=== PATIENT | female | born 1970 | race Caucasian/White ===

== ENCOUNTER → 2017-02-05 | Outpatient (CLI) | payer BC ==
[~2017-02-05] MED LIST: ACET-1256 PO; CARV3.12 PO; CEPH500C PO; CLIN300C2 PO; CYCL10TA6 PO; DICL75TA2 PO; DOXY100C76 PO; FENO145T26 PO; GABA-113 PO; GLCSR500 PO; HYDR-5688 PO; IBUP-1450 PO; INSDGI SC; INSDGIPEN SC; LIRA18IN INJ; LSN25 PO; NVLG SQ; OMEG12006 PO; PRED50TA PO; SULF800T23 PO
--- NOTE | 2017-02-05 11:15 | DIAGNOSTIC IMAGING REPORT ---
RIGHT WRIST MIN 3 VIEWS ROUTINE CLINICAL HISTORY: M25.531 Right trauma. Pain. COMPARISON: None. DISCUSSION: The bones and joint spaces appear intact. There is no evidence of fracture, dislocation or bony disease. There is no evidence for soft tissue swelling. IMPRESSION: Negative study. Electronically signed by: Norberto Palm M.D. 02/05/2017 11:14 AM Dictated Date/Time: 02/05/2017 11:12 AM
--- NOTE | 2017-02-05 11:15 | DIAGNOSTIC IMAGING REPORT ---
RIGHT HAND MIN 3 VIEWS ROUTINE CLINICAL HISTORY: Right hand pain. Trauma. COMPARISON: None. DISCUSSION: No acute fractures or dislocations are visualized. There are minimal degenerative changes present. IMPRESSION: No acute fractures or dislocations identified. Electronically signed by: Sridhar Mcintyre M.D. 02/05/2017 11:14 AM Dictated Date/Time: 02/05/2017 11:13 AM
== END | disposition home or self-care (01) ==
LOC: C.RAD 10:47
PROVIDERS: ATTEND Physician Assistant Surgical
DX: S69.91XA Unspecified injury of right wrist, hand and finger(s), initial encounter (principal); X58.XXXA Exposure to other specified factors, initial encounter; M25.531 Pain in right wrist

== ENCOUNTER 2017-03-15 15:25 | Emergency (ER) | payer BC ==
[~2017-03-15] VITALS: Ht 165.1 cm; Wt 79.0 kg
[~2017-03-15 15:25] MED LIST changes: -ACET-1256 PO; -CEPH500C PO; -CLIN300C2 PO; -CYCL10TA6 PO; -DICL75TA2 PO; -DOXY100C76 PO; -GABA-113 PO; -HYDR-5688 PO; -IBUP-1450 PO; -INSDGIPEN SC; -LIRA18IN INJ; -NVLG SQ; -OMEG12006 PO; -PRED50TA PO; -SULF800T23 PO
[2017-03-15 15:33] VITALS: TEMP 36.8; Ht 165.1 cm; Wt 79.0 kg
[2017-03-15] MEDS ORDERED: IBUPROFEN 600 MG TAB PO STA (15:44)
[2017-03-15] MEDS ORDERED: CEPHALEXIN MONOHYDRATE 250 MG CAP PO STA (15:44)
[2017-03-15] MEDS ORDERED: HYDROCODONE/ACETAMOPHEN 5/325MG TAB PO STA (15:44)
[2017-03-15] MEDS ORDERED: SULFAMETHOXAZOLE/TRIMETHOPRIM DS 800/160MG TAB PO STA (15:44)
[2017-03-15] MEDS ORDERED: HYDR-5688 PO (15:50)
[2017-03-15] MEDS ORDERED: SULF800T23 PO (15:50)
[2017-03-15] MEDS ORDERED: CEPH500C PO (15:50)
[2017-03-15] MEDS ORDERED: INSDGIPEN SC (15:57)
[2017-03-15] MEDS ORDERED: OMEG12006 PO (15:57)
[2017-03-15] MEDS ORDERED: LIRA18IN INJ (15:57)
[2017-03-15 16:23] VITALS: BP 129/68; PULSE 80; O2SAT 97
--- NOTE | 2017-03-15 16:27 | EMERGENCY ROOM VISIT NOTE ---
ED Visit Note First contact with patient: 15:38 CHIEF COMPLAINT: Infection of the left breast HISTORY OF PRESENT ILLNESS: This 46 y/o female patient presents to the emergency department complaining of left breast pain. The area has become red, warm, and very painful. The patient denies fever, chills, nausea, or loss of appetite. REVIEW OF SYSTEMS: A review of systems was performed with positives and pertinent negatives listed in the history of present illness. All other systems were reviewed and are negative. ALLERGIES: Toradol, Oxy, Proxyphene MEDICATIONS: see nursing notes PMH:Diabetes, Heart Disease, Partial hysterectomy, tonsils, abd plasty SOCIAL HISTORY: employed lives at home, drinks alcohol doesnt smoke PHYSICAL EXAM: Vital Signs: Reviewed Nurse's notes, Temperature 37C, vital signs stable. GENERAL: 46 y/o female, in no acute distress, is non toxic in appearance, well-developed, well-nourished. SKIN: The left breast is red, warm, very tender, and swollen. There is no lymphangitic streaking. There is no discharge. There is no fluctuance. There is no induration. HEART: Regular rate and rhythm without murmur, gallop, or rub. LUNGS: Clear to auscultation bilaterally without wheezes, rales, or rhonchi. NEURO: Alert and oriented to person, place, and time. Normal sensation to light and sharp touch. Capillary reflex less than 2 seconds. Peripheral pulses 2 + bilaterally. No abscess present by bedside ultrasound EMERGENCY DEPARTMENT COURSE: I examined the patient. Bedside U/S obtained, Pt started on Keflex and Bactrim, Ibuprofen and Barclay. Case management contacted to [facility] with [facility] DIAGNOSIS: Cellulitis of the left Breast DISCHARGE INSTRUCTIONS: Follow up with [facility] Problem List Medical Problems: (1) Diabetes Status: Chronic (2) Heart disease Status: Chronic (3) Pneumonia Status: Resolved Surgical Problems: (1) Hx of cholecystectomy Status: Resolved Current/Historical Medications Scheduled Carvedilol (Coreg), 3.125 MG PO BID Cephalexin Monohydrate (Keflex), 1 CAP PO QID Insulin Glargine (Lantus Solostar), 40 UNITS SC QPM Liraglutide (Victoza), 3 ML INJ NOON Metformin HCl (Metformin HCl ER), 1,000 MG PO BID Distant-3 Fatty Acids (Distant 3), 1 CAP PO BID Sulfa/Trimethoprim (Bactrim Ds 800MG/160MG), 1 TAB PO BID Scheduled PRN Hydrocodone/Acetaminophen 5MG/325MG (Barclay 5MG/325MG), 2 TABLETS PO Q6H PRN for Pain Allergies Coded Allergies: Propoxyphene (Unverified Allergy, Mild, HIVES, 03/15/17) Ketorolac Tromethamine (Unverified Allergy, Unknown, UNKNOWN, 03/15/17) Oxycodone (Unverified Allergy, Unknown, HIVES, 03/15/17) Vital Signs Date Time Temp Pulse Resp B/P (MAP) Pulse Ox O2 Delivery O2 Flow Rate FiO2 03/15/17 15:33 36.8 90 20 156/87 97 Room Air Departure Information Impression Primary Impression: Cellulitis of breast Additional Impression: Hypertension Dispostion Home / Self-Care Condition GOOD Prescriptions Hydrocodone/Acetaminophen 5MG/325MG (Barclay 5MG/325MG) Tab 2 TABLETS PO Q6H Y for Pain, #14 TAB Prov: Julian Carranza MD 03/15/17 Cephalexin Monohydrate (Keflex) 500 Mg Cap 1 CAP PO QID for 10 Days, #40 CAP Prov: Julian Carranza MD 03/15/17 Sulfa/Trimethoprim (Bactrim Ds 800MG/160MG) Tab 1 TAB PO BID for 10 Days, #20 TAB Prov: Julian Carranza MD 03/15/17 Forms WORK / SCHOOL INSTRUCTIONS, HOME CARE DOCUMENTATION FORM, IMPORTANT VISIT INFORMATION Patient Instructions Hypertension Dc, Cellulitis - [facility], [facility] Additional Instructions Need follow up with Breast Center You were found to have an elevated blood pressure today (>120 sytolic or >90 diastolic). Per medicare guidelines, you need to follow up with this blood pressure screening with your Primary Care Physician (PCP). For a new PCP call [phone]. You received narcotic or benzodiazepene medication while in the emergency room today. Do not drive, operate heavy machinery, or drink alcohol under the influence of this medication. Take 600 mg Ibuprofen every 6 hours Take Barclay for breakthrough pain You have been examined and treated today on an emergency basis only. This is not a substitute for, or an effort to provide, complete comprehensive medical care. It is impossible to recognize and treat all injuries or illnesses in a single emergency department visit. It is therefore important that you follow up closely with Dr Curran. Call as soon as possible for an appointment. Thank you for your time and consideration. I look forward to speaking with you again soon. Please don't hesitate to call us if you have any questions. Problem Qualifiers
== END 2017-03-15 16:47 | disposition home or self-care (01) ==
LOC: C.EDB 15:26
DX: N61.0 Mastitis without abscess (principal); I10 Essential (primary) hypertension; E11.9 Type 2 diabetes mellitus without complications; I51.9 Heart disease, unspecified; Z79.4 Long term (current) use of insulin; Z79.899 Other long term (current) drug therapy; Z87.01 Personal history of pneumonia (recurrent)

== ENCOUNTER → 2017-05-19 | Outpatient (CLI) | payer BC ==
[~2017-05-19] MED LIST changes: -FENO145T26 PO; +HYDR-5688 PO; -INSDGI SC; +INSDGIPEN SC; +LIRA18IN INJ; -LSN25 PO; +OMEG12006 PO
[2017-05-19 16:10] LABS: ALKALINE PHOSPHATASE 75 U/L (45-117); ALT/SGPT 37 U/L (12-78); AST/SGOT 28 U/L (15-37)
== END | disposition home or self-care (01) ==
LOC: C.LAB 14:57
PROVIDERS: ATTEND Surgery
DX: T88.7XXA Unspecified adverse effect of drug or medicament, initial encounter (principal); X58.XXXA Exposure to other specified factors, initial encounter

== ENCOUNTER 2017-06-08 13:39 | Emergency (ER) | payer BC ==
[~2017-06-08] VITALS: Ht 165.1 cm; Wt 82.1 kg
[2017-06-08 13:41] VITALS: TEMP 36.5; Ht 165.1 cm; Wt 82.1 kg
[2017-06-08] MEDS ORDERED: NVLG SQ ×2 (14:14)
--- NOTE | 2017-06-08 14:38 | DIAGNOSTIC IMAGING REPORT ---
R SHOULDER MIN 2 VIEWS ROUTINE CLINICAL HISTORY: Right arm/shoulder pain COMPARISON: None. DISCUSSION: No fractures or dislocations are visualized. Degenerative changes are present within the AC joint. There is a tiny peritendinous calcification adjacent to the greater tuberosity. This could indicate calcific tendinitis. IMPRESSION: 1. No fractures or dislocations 2. Degenerative changes within the AC joint 3. Tiny calcification adjacent to the greater tuberosity. This could indicate calcific tendinitis. Electronically signed by: Sridhar Mcintyre M.D. 06/08/2017 2:36 PM Dictated Date/Time: 06/08/2017 2:32 PM
--- NOTE | 2017-06-08 14:38 | DIAGNOSTIC IMAGING REPORT ---
R HUMERUS MIN 2 VIEWS ROUTINE CLINICAL HISTORY: Right arm/shoulder pain. COMPARISON: None FINDINGS: No fracture or osseous lesion is identified within the right humerus. A 3 mm calcific density along the superolateral aspect of the right humeral head suggests calcific tendinitis of the right rotator cuff. IMPRESSION: 1. No fracture or lesion identified within the right humerus. 2. Findings suggestive of mild calcific tendinitis of the right rotator cuff. Electronically signed by: Robert Perry M.D. 06/08/2017 2:36 PM Dictated Date/Time: 06/08/2017 2:33 PM
[2017-06-08] MEDS ORDERED: PRED50TA PO (15:22)
[2017-06-08] MEDS ORDERED: DICL75TA2 PO (15:22)
[2017-06-08] MEDS ORDERED: CYCL10TA6 PO (15:22)
[2017-06-08 15:32] VITALS: BP 121/85; PULSE 97; O2SAT 96
--- NOTE | 2017-06-09 07:53 | EMERGENCY ROOM VISIT NOTE ---
History First contact with patient: 13:44 Chief Complaint: SHOULDER PAIN Stated Complaint: RIGHT SHOULER PAIN History of Present Illness The patient is a 47 year old female who presents to the Emergency Room with complaints of right shoulder pain that is slowly worsening over the past several days. The patient does not have distinct injury or trauma to explain her symptoms. She has difficulty with certain range of motion. No numbness or paresthesias. She does not have significant neck or chest pain. She has had some improvement with ibuprofen but rates her current discomfort a 6/10. Review of Systems More than 10 systems were reviewed and otherwise negative with the exception of history of present illness. Past Medical/Surgical History Medical Problems: (1) Diabetes (2) Heart disease (3) Pneumonia Surgical Problems: (1) Hx of cholecystectomy Family History Diabetes mellitus FHx: cancer FHx: heart disease Hypertension Kidney disease Social History Smoking Status: Former Smoker Alcohol Use: occasionally Marital Status: Housing Status: lives with significant other Occupation Status: employed Current/Historical Medications Scheduled Carvedilol (Coreg), 3.125 MG PO BID Cyclobenzaprine Hcl (Flexeril), 10 MG PO TID Diclofenac Sodium (Voltaren), 75 MG PO BID Insulin Aspart (Novolog), 6 UNITS SQ QDB Insulin Aspart (Novolog), 8 UNITS SQ QDD Insulin Glargine (Lantus Solostar), 40 UNITS SC QPM Metformin HCl (Metformin HCl ER), 1,000 MG PO BID [place]-3 Fatty Acids ([place] 3), 1 CAP PO BID Prednisone (Prednisone), 50 MG PO DAILY Allergies Coded Allergies: Propoxyphene (Unverified Allergy, Mild, HIVES, 06/08/17) Ketorolac Tromethamine (Unverified Allergy, Unknown, UNKNOWN, 06/08/17) Oxycodone (Unverified Allergy, Unknown, HIVES, 06/08/17) Physical Exam Vital Signs Date Time Temp Pulse Resp B/P (MAP) Pulse Ox O2 Delivery O2 Flow Rate FiO2 06/08/17 15:32 97 18 121/85 96 06/08/17 13:41 36.5 82 16 129/80 97 Room Air Physical Exam VITALS: Vitals are noted on the nurse's note and reviewed by myself. Vital signs stable. GENERAL: Well-developed, well-nourished, white female, who is in no acute distress and resting comfortably. Patient is cooperative with the examination. NECK: Supple without nuchal rigidity. No lymphadenopathy. No thyromegaly. Cervical spine is nontender. HEART: Regular rate and rhythm without murmurs gallops or rubs. LUNGS: Clear to auscultation bilaterally without wheezes, rales or rhonchi. No retractions or accessory muscle use. MUSCULOSKELETAL: No muscle atrophy, erythema, or edema noted. Tenderness appreciated diffusely throughout the right shoulder. The patient has difficulty with abduction and external rotation. She is able to raise her hand above her head. No tenderness of the elbow or wrist. No paresthesias appreciated. Strength is 5/5 throughout the right upper extremity. NEURO: Patient was alert and oriented to person place and time. CN II through XII grossly intact. Deep tendon reflexes 2+ throughout. Medical Decision & Procedures ER Provider Diagnostic Interpretation: R HUMERUS MIN 2 VIEWS ROUTINE CLINICAL HISTORY: Right arm/shoulder pain. COMPARISON: None FINDINGS: No fracture or osseous lesion is identified within the right humerus. A 3 mm calcific density along the superolateral aspect of the right humeral head suggests calcific tendinitis of the right rotator cuff. IMPRESSION: 1. No fracture or lesion identified within the right humerus. 2. Findings suggestive of mild calcific tendinitis of the right rotator cuff. R SHOULDER MIN 2 VIEWS ROUTINE CLINICAL HISTORY: Right arm/shoulder pain COMPARISON: None. DISCUSSION: No fractures or dislocations are visualized. Degenerative changes are present within the AC joint. There is a tiny peritendinous calcification adjacent to the greater tuberosity. This could indicate calcific tendinitis. IMPRESSION: 1. No fractures or dislocations 2. Degenerative changes within the AC joint 3. Tiny calcification adjacent to the greater tuberosity. This could indicate calcific tendinitis. ED Course Physical exam and history were performed. Nursing notes, EMR, and Medication List were personally reviewed. Patient appears to have right shoulder pain of atraumatic origin for the past several days. She does identify the discomfort between the mid humerus and the proximal humerus. She does have some tenderness on examination and x-ray was performed. X-ray does not show evidence of fracture or dislocation but does suggest a possible calcific tendinitis. Clinically this does correlate with her symptoms. The patient will be given a short course of diclofenac, Flexeril , and prednisone for her symptoms. She needs to follow with orthopedics for further care and management, and was given information to assist with this. She was given additional discharge instructions as below in the ER with a new, worsening, or concerning symptoms. The chart was completed utilizing [employer] Voice Recognition Software. Grammatical errors, random word insertions, pronoun errors, and incomplete sentences are an occasional consequence of this system due to software limitations, ambient noise, and hardware issues. Any formal questions or concerns about the content, text, or information contained within the body of this dictation should be directly addressed to the provider for clarification. . Medical Decision Differential diagnosis includes, but is not limited to: Sprain, strain, fracture , dislocation, subluxation, contusion, arthritis, bursitis, rotator cuff injury , and others Impression Primary Impression: Calcific tendonitis of right upper arm Departure Information Dispostion Home / Self-Care Condition GOOD Prescriptions Diclofenac Sodium (VOLTAREN) 75 Mg Tab 75 MG PO BID for 10 Days, #20 TAB Prov: Jonah Field PA-C 06/08/17 Cyclobenzaprine Hcl (FLEXERIL) 10 Mg Tab 10 MG PO TID for 7 Days, #21 TAB Prov: Jonah Field PA-C 06/08/17 Prednisone (Prednisone) 50 Mg Tab 50 MG PO DAILY for 4 Days, #4 TAB Prov: Jonah Field PA-C 06/08/17 Forms HOME CARE DOCUMENTATION FORM, IMPORTANT VISIT INFORMATION Patient Instructions My [facility] Additional Instructions You were seen and evaluated today on an emergency basis only. This is not a substitute for, or an effort to provide, complete comprehensive medical care. It is not possible to recognize and treat all injuries or illnesses in a single emergency department visit. For this reason it is recommended that you followup with [facility] , Dr Acosta office, for ongoing care and evaluation. We recommended you call in the morning to arrange an appointment in the next 1-2 weeks for recheck. Take diclofenac 75 mg twice daily for the next for 5 days. Take this medication with food. Flexeril 1 tablet up to 3 times a day as needed for muscle spasms. No driving, working, or alcohol use with Flexeril. Take prednisone 50 mg daily for the next 4 days. Prednisone will likely increase your blood sugar. You may need to increase her insulin for the next few days to adjust for this. You are welcome to return to the emergency department anytime with new, worsening, or concerning symptoms.
== END 2017-06-08 15:32 | disposition home or self-care (01) ==
LOC: C.EDB 13:41 → C.EDD 15:32
DX: M75.31 Calcific tendinitis of right shoulder (principal); E11.9 Type 2 diabetes mellitus without complications; Z87.01 Personal history of pneumonia (recurrent); Z90.49 Acquired absence of other specified parts of digestive tract; Z83.3 Family history of diabetes mellitus; Z80.9 Family history of malignant neoplasm, unspecified; Z82.49 Family history of ischemic heart disease and other diseases of the circulatory system; Z84.1 Family history of disorders of kidney and ureter; Z87.891 Personal history of nicotine dependence; Z79.899 Other long term (current) drug therapy; Z79.4 Long term (current) use of insulin

== ENCOUNTER → 2017-11-22 | Outpatient (CLI) | payer BC ==
[~2017-11-22] MED LIST changes: +ACET-1256 PO; +GABA-113 PO; -HYDR-5688 PO; -LIRA18IN INJ; +NVLG SQ
[2017-11-22 13:10] LABS: BASO % 0.2 %; BASO ABS # 0.01 K/uL (0-0.2); EOS % 1.3 %; EOS ABS # 0.08 K/uL (0-0.5); HEMATOCRIT 37.3 % (37-47); IG# 0.02 K/uL (0.00-0.02); LYMPH % 28.3 %; LYMPH ABS # 1.78 K/uL (1.2-3.4); MEAN CELL VOLUME 80.6 fL (80-100); MEAN CORPUSCULAR HEMOGLOBIN 28.1 pg (25-34); MEAN CORPUSCULAR HGB CONC 34.9 g/dl (32-36); MEAN PLATELET VOLUME 9.2 fL (7.4-10.4); MONO % 6.2 %; MONO ABS # 0.39 K/uL (0.11-0.59); NEUT % 63.7 %; NEUT ABS # 4.01 K/uL (1.4-6.5); PLATELET COUNT 143 K/uL (130-400); RED CELL DISTRIBUTION WIDTH CV 13.5 % (11.5-14.5); RED CELL DISTRIBUTION WIDTH SD 39.6 fL (36.4-46.3); WHITE BLOOD COUNT 6.29 K/uL (4.8-10.8)
[2017-11-22 15:46] LABS: ALBUMIN 3.6 gm/dl (3.4-5.0); ALT/SGPT 26 U/L (12-78); BLOOD UREA NITROGEN 10 mg/dl (7-18); CALCIUM 8.6 mg/dl (8.5-10.1); CARBON DIOXIDE 21 mmol/L (21-32); CREATININE 0.82 mg/dl (0.60-1.20); GLUCOSE 212 mg/dl (70-99); POTASSIUM 3.9 mmol/L (3.5-5.1); SODIUM 134 mmol/L (136-145)
[2017-11-22 15:48] LABS: ALKALINE PHOSPHATASE 71 U/L (45-117); AST/SGOT 18 U/L (15-37); TOTAL PROTEIN 6.9 gm/dl (6.4-8.2)
[2017-11-26 04:23] LABS: ANA SCREEN TC 249X NEGATIVE (NEGATIVE); ANTI-SS-A <1.0 NEG AI (<1.0 NEG); ANTI-SS-B <1.0 NEG AI (<1.0 NEG); ANTICARDIOLIPID AB IGA <11 APL (< = 11); COMPLEMENT C3 TC 44859W 151 MG/DL (90-180); COMPLEMENT C4 TC 44982E 25 MG/DL (16-47); MICROSOMAL AB 2 IU/ML (<9)
== END | disposition home or self-care (01) ==
LOC: C.LAB1850 12:02
PROVIDERS: ATTEND Internal Medicine Infectious Disease
DX: M13.0 Polyarthritis, unspecified (principal)